=== PATIENT | female | born 1965 | race Hispanic/Latino ===

== ENCOUNTER → 2019-03-29 | Outpatient (CLI) | payer OTHER | END | disposition home or self-care (01) | LOC: RAH 13:41 | PROVIDERS: ATTEND Specialist | DX: Z12.31 Encounter for screening mammogram for malignant neoplasm of breast (principal) | CPT/HCPCS: 77067 ==

== ENCOUNTER → 2021-11-20 | Outpatient (CLI) | payer OTHER | END | disposition home or self-care (01) | LOC: RAH 09:25 | PROVIDERS: ATTEND Internal Medicine | DX: Z12.31 Encounter for screening mammogram for malignant neoplasm of breast (principal); R94.5 Abnormal results of liver function studies; K76.0 Fatty (change of) liver, not elsewhere classified | CPT/HCPCS: 76705; 77067 ==

== ENCOUNTER → 2022-11-23 | Outpatient (CLI) | payer OTHER | END | disposition home or self-care (01) | LOC: RAH 09:42 | PROVIDERS: ATTEND Obstetrics & Gynecology | DX: Z12.31 Encounter for screening mammogram for malignant neoplasm of breast (principal) | CPT/HCPCS: 77067 ==

== ENCOUNTER → 2024-04-14 | Outpatient (CLI) | payer OTHER | END | disposition home or self-care (01) | LOC: RAH 12:50 | PROVIDERS: ATTEND Student in an Organized Health Care Education/Training Program | DX: S83.241A Other tear of medial meniscus, current injury, right knee, initial encounter (principal); S83.281A Other tear of lateral meniscus, current injury, right knee, initial encounter; M70.41 Prepatellar bursitis, right knee; X58.XXXA Exposure to other specified factors, initial encounter; Y93.89 Activity, other specified; Y92.89 Other specified places as the place of occurrence of the external cause; Y99.8 Other external cause status | CPT/HCPCS: 73721 ==

== ENCOUNTER → 2024-04-24 | Outpatient (CLI) | payer OTHER ==
--- NOTE | 2024-04-24 09:54 | HMCIMG ---
SCREENING MAMMOGRAM REASON: Annual Exam COMPARISON: 11/23/2022 TECHNIQUE: CC and MLO views of the bilateral breasts were performed.CAD was performed as well. FINDINGS: Parenchymal density: The breasts are heterogeneously dense, which may obscure small masses. There are no focal mass lesions. There are no pathologic appearing calcifications. There is no evidence of architectural distortion or skin thickening. IMPRESSION: Normal screening mammogram The patient was entered into a reminder system with a target due date for their next mammogram. BI-RADS CATEGORY 1: NEGATIVE Recommend monthly self breast exam as well as annual clinical examination. A negative x-ray should not delay biopsy if a dominant or clinically suspicious mass is present, since 8-10% of cancers are not identified by mammography. Dense breasts particularly, may obscure an underlying neoplasm. Some of these may be detected clinically and therefore, clinical examination is an essential part of breast evaluation.
== END | disposition home or self-care (01) ==
LOC: RAH 08:26
PROVIDERS: ATTEND Obstetrics & Gynecology
DX: Z12.31 Encounter for screening mammogram for malignant neoplasm of breast (principal); R92.333 Mammographic heterogeneous density, bilateral breasts
CPT/HCPCS: 77067

== ENCOUNTER 2024-05-29 05:41 | Day surgery (SDC) | payer OTHER ==
[2024-05-23 15:04] VITALS: BP 122/68; PULSE 82; RESP 17; TEMP 97.6
[2024-05-23 15:05] LABS: BASOPHILS # (AUTO) 0.04 K/uL (0.00-0.20); BASOPHILS % (AUTO) 0.6 % (0.0-5.0); EOSINOPHILS # (AUTO) 0.41 K/uL (0.00-0.70); EOSINOPHILS % (AUTO) 6.3 % (0.0-8.0); HEMATOCRIT 39.6 % (36-48); IMMATURE GRANULOCYTE ABSOLUTE 0.01 K/uL (0-1); LYMPHOCYTES # (AUTO) 2.8 K/uL (1.0-4.8); LYMPHOCYTES % (AUTO) 42.9 % (21.0-51.0); MEAN CORPUSCULAR HEMOGLOBIN 29.5 pg (27.0-33.0); MEAN CORPUSCULAR HGB CONC 34.3 g/dL (32.0-36.0); MEAN CORPUSCULAR VOLUME 85.9 fL (79-99); MONOCYTES # (AUTO) 0.5 K/uL (0.1-1.0); MONOCYTES % (AUTO) 8.3 % (3.0-13.0); NEUTROPHILS # (AUTO) 2.7 K/uL (1.8-7.7); NEUTROPHILS % (AUTO) 41.7 % (40.0-77.0); PLATELET COUNT (AUTO) 243 K/uL (130-400); RED BLOOD CELL COUNT(AUTO) 4.61 MIL/uL (4.00-5.50); RED CELL DISTRIBUTION WIDTH 12.9 % (11.0-15.5); WHITE BLOOD COUNT (AUTO) 6.5 K/uL (4.8-10.8)
[2024-05-23 15:22] LABS: PARTIAL THROMBOPLASTIN TIME 25.7 SEC (26.3-35.5)
[2024-05-23 15:29] LABS: PROTHROMBIN TIME 10.8 SEC (9.6-11.6)
[2024-05-23 15:34] LABS: CREATININE 0.7 mg/dL (0.5-1.0); POTASSIUM 3.1 mmol/L (3.5-5.1)
--- NOTE | 2024-05-25 16:57 | NUR ---
RE: LABS REPORTED BMP RESULTS TO DR HOPSON, RECEIVED ORDERS TO REPEAT LABS ON DOS.
[~2024-05-29] VITALS: Ht 160 cm; Wt 85.8 kg
[2024-05-29] VITALS (10 sets, daily range): BP systolic 119–137; BP diastolic 66–86; PULSE 63–78; RESP 15–16; TEMP 97.4–98
[~2024-05-29 05:41] MED LIST: AMLO2.5T4 PO; HYDR25TA PO; MONT-39 PO; ROSU40TA88 PO; TELM40TA8 PO
[2024-05-29 06:50] LABS: CREATININE 0.8 mg/dL (0.5-1.0); POTASSIUM 3.3 mmol/L (3.5-5.1)
[2024-05-29] MEDS: ceFAZolin SODIUM 2 GM VIAL ONE (06:54)
[2024-05-29] MEDS: LACTATED RINGERS 1000ML 1,000 ML IV ONE (06:54)
[2024-05-29] MEDS: SCOPOLAMINE HYDROBROMIDE 1 EACH ADH..PATCH TD ONE (06:54)
[2024-05-29] MEDS ORDERED: rocuRONium bROMide 10MG/1ML 5ML VL ONE (07:06)
[2024-05-29] MEDS ORDERED: proPOFol 10 MG/ML 20ML VIAL IV ONE (07:06)
[2024-05-29] MEDS ORDERED: LIDOCAINE PF 100MG/5ML (2%) SYRINGE 5ML ONE (07:06)
[2024-05-29] MEDS ORDERED: FENTanyl CITRate PF 50 MCG/1 ML 2ML VIAL ONE (07:06)
[2024-05-29] MEDS ORDERED: acetaMINOPHEN 100 ML ONE (07:11)
[2024-05-29] MEDS ORDERED: PROMETHAZINE HCL 25 MG/ML 1ML AMPULE IM ONE (07:12)
[2024-05-29] MEDS ORDERED: FAMOTIDINE 20MG VIAL IV ONE (07:12)
[2024-05-29] MEDS ORDERED: BUPIvacaine/PF 0.25% 30ML VIAL IJ ONE (07:16)
[2024-05-29] MEDS ORDERED: dexaMETHasone SOD PHOSPHATE 10MG/ML 1ML VIAL ONE (07:30)
[2024-05-29] MEDS ORDERED: ondanSETRON 4MG INJ ONE (07:30)
[2024-05-29] MEDS: ceFAZolin SODIUM 2 GM VIAL IVPB ONE (07:45)
[2024-05-29] MEDS ORDERED: NEOSTIGMINE METHYLSULFATE 1MG/ML IV ONE (07:59)
[2024-05-29] MEDS ORDERED: GLYCOPYRROLATE 0.2 MG/ML 5 ML VIAL ONE (07:59)
[2024-05-29] MEDS ORDERED: SUGAMMADEX SODIUM 200 MG/2 ML VIAL IV ONE (08:08)
--- NOTE | 2024-05-29 08:20 | OP ---
Operative Note: DATE OF PROCEDURE: 05/29/24 SURGEON: YUMIKO CONDE MD PYROTECHNICIAN: Karla Moncada ANESTHESIA: General ANESTHESIOLOGIST/MEDICAL CONSULTANT: Muna Sanchez CRNA PREOPERATIVE DIAGNOSIS: Right knee mass POSTOPERATIVE DIAGNOSIS: Right knee mass approximately 1 cm diameter PROCEDURE: Excision of right knee mass 1 x 1 cm ESTIMATED BLOOD LOSS: None INDICATIONS: 59-year-old female with history of right knee mass along the anterolateral aspect of the knee just distal to the joint line. The patient reported that the mass would increase in size and pain with increased activity. On presentation to my clinic this was a small soft non mobile with palpation and did not feel cystic necessarily in nature. MRI was obtained that did not show communication to the joint were other region of specified bursa but it did appear to be a small fluid-filled cyst. Patient reported that this was causing are bad enough pain that she was being awakened at night secondary to knee pain from the region of the mass. After discussion of the risks, benefits, and alternatives, the patient voluntarily agreed to undergo the aforementioned procedure. DESCRIPTION OF PROCEDURE: Patient was properly identified in the preoperative holding area. Surgical site marking was verified and surgery consent reviewed. The patient was then taken to the operating room and placed in supine position on the OR table. After induction of general anesthesia, preoperative antibiotics were given, all bony prominences were well-padded, and a well padded tourniquet was applied but not inflated at this time. The right lower extremity was then prepped and draped in usual sterile fashion. Surgical timeout was done verifying correct surgery, side, site, and location to be performed. We then exsanguinated the limb with an Esmarch and inflated the tourniquet to 250 mmHg. We made a small proximally 3-4 cm long incision directly centered over the mass using a 10 blade. We came sharply through the skin. We began to use Metzenbaum to dissect in the subcutaneous tissue as we identified a pale pink colored mass within the fatty tissue. This did not appear to have any fluid in it was soft in nature. We dissected around the mass using a Metzenbaum scissors until the mass was released. This was passed off to the back table as specimen. We then further identified a region that may have had a deeper tract and dissected further after this excising the surrounding soft tissue. Once we had completely resected the mass we then thoroughly irrigated out the wound with normal saline. We injected the lashon-incisional tissue with 0.25% Marcaine. We then began closing the wound using 2-0 Vicryl and running subcuticular 3-0 Monocryl. Dermabond was applied over the wound. Our tourniquet was then deflated. The patient was awakened from anesthesia and taken to the recovery room in stable condition. YUMIKO CONDE MD May 29, 2024 08:20
== END 2024-05-29 09:20 | disposition home or self-care (01) ==
LOC: DAH 05:41
PROVIDERS: ATTEND Student in an Organized Health Care Education/Training Program
DX: M70.41 Prepatellar bursitis, right knee (principal); M25.561 Pain in right knee; I10 Essential (primary) hypertension; E78.5 Hyperlipidemia, unspecified; Z79.01 Long term (current) use of anticoagulants; Z79.899 Other long term (current) drug therapy
CPT/HCPCS: 80048 ×2; 84703; 85025; 85610; 85730; 36415 ×2; 27327; 81025; 88305; 88342; 88341; J7120; J3490 ×3; J3010; J1100; J0665 ×2; J2550; J2003; J2704; J2405; J2710; J0690 ×2; A4649; A5120; A4215; A4223; A4222; A4221; A4663